=== PATIENT | male | born 1985 | race Hispanic/Latino ===

== ENCOUNTER 2018-07-08 19:18 | Emergency (ER) | payer SELFPAY ==
[2018-07-08 19:18] VITALS: BMI 33.5
[2018-07-08 19:33] VITALS: BP 168/113; PULSE 97; RESP 18; TEMP 98.9; O2SAT 99
--- NOTE | 2018-07-08 20:59 | ED PDOC ---
HPI: General Adult Chief Complaint (Provider): Trauma History Per: Patient History/Exam Limitations: no limitations Onset/Duration Of Symptoms: Days (x2) Current Symptoms Are (Timing): Still Present Additional Complaint(s): 33 year old male presents to the ED for evaluation of a left ankle injury after he tripped yesterday twisting his left ankle. Patient states he fell hitting the right side of his face on a car causing pain to the right jaw. He now has left ankle pain, swelling, and bruising and took Motrin with no relief. PMD: none <Roxanna Park - Last Filed: 07/08/18 22:04> <Mima Vargas - Last Filed: 07/09/18 16:08> Time Seen by Provider: 07/08/18 19:37 Chief Complaint (Nursing): Trauma Past Medical History Reviewed: Historical Data, Nursing Documentation, Vital Signs Vital Signs: Last Vital Signs Temp 98.9 F 07/08/18 19:30 Pulse 97 H 07/08/18 19:30 Resp 18 07/08/18 19:30 BP 168/113 H 07/08/18 19:30 Pulse Ox 99 07/08/18 19:30 - Medical History PMH: Diverticulitis Denies: Chronic Kidney Disease - Surgical History Surgical History: No Surg Hx - Family History Family History: States: Unknown Family Hx - Social History Current smoker - smoking cessation education provided: No Alcohol: Social Drugs: Denies - Immunization History Hx Tetanus Toxoid Vaccination: Yes Hx Influenza Vaccination: No Hx Pneumococcal Vaccination: No <Roxanna Park - Last Filed: 07/08/18 22:04> Vital Signs: Last Vital Signs Temp 98.9 F 07/08/18 19:30 Pulse 97 H 07/08/18 19:30 Resp 18 07/08/18 19:30 BP 168/113 H 07/08/18 19:30 Pulse Ox 99 07/08/18 22:05 <Mima Vargas - Last Filed: 07/09/18 16:08> - Home Medications Home Medications: Ambulatory Orders Medication Instructions Recorded Oxycodone HCl/Acetaminophen 1 each PO TID PRN #12 tablet 01/20/16 [Percocet 5-325 mg Tablet] RX: traMADol [Ultram] 50 mg PO Q6H PRN #15 tab 07/08/18 - Allergies Allergies/Adverse Reactions: Allergies Allergy/AdvReac Type Severity Reaction Status Date / Time No Known Allergies Allergy Verified 07/08/18 19:30 Review of Systems ROS Statement: Except As Marked, All Systems Reviewed And Found Negative Musculoskeletal: Positive for: Other (left ankle pain, swelling, and bruising and right jaw pain) <Roxanna Park - Last Filed: 07/08/18 22:04> Physical Exam - Reviewed Nursing Documentation Reviewed: Yes Vital Signs Reviewed: Yes - Physical Exam Appears: Positive for: Non-toxic, No Acute Distress Head Exam: Positive for: ATRAUMATIC, NORMOCEPHALIC Skin: Positive for: Normal Color, Warm, Dry Eye Exam: Positive for: Normal appearance Neck: Positive for: Normal, Painless ROM Cardiovascular/Chest: Positive for: Regular Rate, Rhythm. Negative for: Murmur Respiratory: Positive for: Normal Breath Sounds. Negative for: Wheezing, Respiratory Distress Pulses-Dorsalis Pedis (L): 2+ Pulses-Dorsalis Pedis (R): 2+ Pulses-Post. Tibialis (L): 2+ Pulses-Post. Tibialis (R): 2+ Extremity: Positive for: Swelling (in left ankle), Other (ecchymosis on ankle and foot). Negative for: Deformity (bony) Neurologic/Psych: Positive for: Alert, Oriented, Other (Sensation intact). Negative for: Motor/Sensory Deficits Comments: RIGHT JAW: swelling and tender to palpation; full ROM of jaw <Roxanna Park - Last Filed: 07/08/18 22:04> - ECG O2 Sat by Pulse Oximetry: 99 (RA) Pulse Ox Interpretation: Normal <Roxanna Park - Last Filed: 07/08/18 22:04> Medical Decision Making Medical Decision Making: Initial Plan: --CT maxillofacial --Tramadol 50mg PO --Left ankle X-ray --Left foot X-ray No acute fracture or dislocation of the right foot/ankle. No acute abnormalities on CT of the face. --- Scribe Attestation: Documented by Van Macias acting as a scribe for Roxanna BLACK. Provider Scribe Attestation: All medical record entries made by the Scribe were at my direction and personally dictated by me. I have reviewed the chart and agree that the record accurately reflects my personal performance of the history, physical exam, medical decision making, and the department course for this patient. I have also personally directed, reviewed, and agree with the discharge instructions and disposition. <Roxanna Park - Last Filed: 07/08/18 22:04> Disposition - Patient ED Disposition Is Patient to be Admitted: No Counseled Patient/Family Regarding: Diagnosis, Need For Followup, Rx Given - Disposition Disposition: Routine/Home Disposition Time: 22:04 <Roxanna Park - Last Filed: 07/08/18 22:04> <Mima Vargas - Last Filed: 07/09/18 16:08> - Clinical Impression Clinical Impression: Ankle injury, Facial contusion - Disposition Referrals: Wilda Hunt MD [Staff Provider] - Condition: GOOD Prescriptions: RX: traMADol [Ultram] 50 mg PO Q6H PRN #15 tab PRN Reason: Pain Instructions: Contusion (DC) Forms: [employer] (Japanese) - PA / [employer] / Resident Statement / has reviewed & agrees with the documentation as recorded. <Mima Vargas - Last Filed: 07/09/18 16:08>
--- NOTE | 2018-07-09 11:59 | RAD ---
Date of service: 07/08/2018 PROCEDURE: Left Ankle Radiographs. HISTORY: pain, tripped COMPARISON: None FINDINGS: BONES: Normal. No fracture. JOINTS: Normal. No osteoarthritis. Ankle mortise maintained. Talar dome intact SOFT TISSUES: Lateral soft tissue swelling without distal fibular abnormality. OTHER FINDINGS: None. IMPRESSION: Soft tissue swelling without acute articular or osseous abnormality.
--- NOTE | 2018-07-09 12:00 | RAD ---
Date of service: 07/08/2018 PROCEDURE: Left Foot Radiographs. HISTORY: pain, tripped COMPARISON: July 08, 2018 left ankle reported separately FINDINGS: BONES: Normal. No fracture. JOINTS: Normal. SOFT TISSUES: Normal. OTHER FINDINGS: None. IMPRESSION: No acute findings related to/accounting for the clinical presentation.
--- NOTE | 2018-07-09 12:38 | CT ---
Date of service: 07/08/2018 PROCEDURE: CT MAXILLOFACIAL BONES WITHOUT CONTRAST HISTORY: right jaw pain, fall COMPARISON: None available. TECHNIQUE: Contiguous axial CT images of the maxillofacial bones were obtained. Coronal and sagittal reformats were generated. Radiation dose: Total exam DLP = 88.75 mGy-cm. This CT exam was performed using one or more of the following dose reduction techniques: Automated exposure control, adjustment of the mA and/or kV according to patient size, and/or use of iterative reconstruction technique. FINDINGS: NASAL BONES: Unremarkable. ORBITS: Old depressed left orbital floor fracture. No acute fracture. No orbital hemorrhage. Globes are rounded and symmetric. Lamina papyracea intact bilaterally. PARANASAL SINUSES/ MASTOIDS: Small bilateral retention cysts/polyps in maxillary sinuses. MAXILLA: Unremarkable. MANDIBLE/ TEMPOROMANDIBULAR JOINTS: Unremarkable. SKULL BASE: Unremarkable. TEMPORAL BONES: Middle ears and mastoid grossly unremarkable. OTHER FINDINGS: Metallic pellet in left temporal scalp soft tissues. IMPRESSION: No acute fracture. Old depressed left orbital floor fracture. Chronic bilateral maxillary sinusitis with small retention cysts/polyps. The preliminary findings for this examination were reported by [facility] at 9:51 p.m. on 07/08/2018. There is concurrence of this report with the preliminary findings.
== END 2018-07-08 22:20 | disposition home or self-care (01) ==
LOC: H.ER 19:18
DX: S99.912A Unspecified injury of left ankle, initial encounter (principal); S00.83XA Contusion of other part of head, initial encounter; W19.XXXA Unspecified fall, initial encounter; Y92.89 Other specified places as the place of occurrence of the external cause; J32.0 Chronic maxillary sinusitis